=== PATIENT | male | born 1965 | race Caucasian/White ===

== ENCOUNTER 2017-06-02 15:39 | Emergency (ER) | payer OTHER ==
[~2017-06-02] VITALS: Ht 180.3 cm; Wt 56.7 kg
[2017-06-02 16:30] VITALS: BP 181/108
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
[2017-06-02] MEDS ORDERED: CEPHALEXIN500 MG ORAL (17:05)
[2017-06-02 17:13] VITALS: BP 181/108
--- NOTE | 2017-06-03 09:30 | Diagnostic Imaging Report ---
Indication: Pain Technique: One view of the foot Comparison: Findings: Only a single view of the foot performed, per patient request. There is hallux valgus and bunion formation. No gross acute fractures. No dislocations. The joint spaces are preserved. Impression: Very limited exam. No gross acute bony trauma
== END 2017-06-02 17:15 ==
LOC: EMR 17:00
DX: L03.90 Cellulitis, unspecified (principal)
CPT/HCPCS: 99283